=== PATIENT | female | born 1995 | race African-American/Black ===

== ENCOUNTER 2022-01-19 19:31 | Emergency (ER) | payer MEDICAID ==
[~2022-01-19] VITALS: Ht 157.5 cm; Wt 61.2 kg
[2022-01-19 19:31] VITALS: BP 119/81
[~2022-01-19 19:31] MED LIST: ACE250T PO; LEVO500T31 PO
[2022-01-19] MEDS ORDERED: KETOROLAC TROMETH 30 MG/ML 1ML VIAL IM ONE (20:30)
[2022-01-19] MEDS ORDERED: IBUP800T26 PO (21:25)
[2022-01-19] MEDS ORDERED: CYCL-837 PO (21:25)
== END 2022-01-19 23:54 | disposition home or self-care (01) ==
LOC: ER 19:31
DX: M77.8 Other enthesopathies, not elsewhere classified (principal); Z79.2 Long term (current) use of antibiotics; Z79.899 Other long term (current) drug therapy; Z88.8 Allergy status to other drugs, medicaments and biological substances
CPT/HCPCS: 73030; 96372; 99283; J1885